=== PATIENT | male | born 1955 | race Caucasian/White ===

== ENCOUNTER 2016-06-24 16:07 | Emergency (ER) | payer SELFPAY ==
--- NOTE | 2016-06-24 17:00 | EDM.PDOC ---
ED HPI GENERAL MEDICAL PROBLEM - General Stated Complaint: HIGH BP Time Seen by Provider: 06/24/16 17:00 Source of Information: Reports: Patient History Limitations: Reports: No limitations - History of Present Illness INITIAL COMMENTS - FREE TEXT/NARRATIVE: History of present illness: [60-year-old male comes in stating that he went for an employment physical and was found to be hypertensive. He returned approximately a week to 10 days later for a second attempt at passing the physical and again he was hypertensive. He indicates he went to the walk-in clinic and immediately sent him here to the ER secondary to the level of hypertension he was experiencing. Patient denies any symptoms other than feeling a little tired, and having pressure in his head but not an actual headache] Review of systems: As per history of present illness and below otherwise all systems reviewed and negative. Past medical history: As per history of present illness and as reviewed below otherwise noncontributory. Surgical history: As per history of present illness and as reviewed below otherwise noncontributory. Social history: No reported history of drug or alcohol abuse. Family history: As per history of present illness and as reviewed below otherwise noncontributory. Physical exam: HEENT: Atraumatic, normocephalic, pupils reactive, negative for conjunctival pallor or scleral icterus, mucous membranes moist, throat clear, neck supple, nontender, trachea midline. Lungs: Clear to auscultation, breath sounds equal bilaterally, chest nontender. Heart: S1S2, regular, negative for clicks, rubs, or JVD. Abdomen: Soft, nondistended, nontender. Negative for masses or hepatosplenomegaly. Negative for costovertebral tenderness. Pelvis: Stable nontender. Genitourinary: Deferred. Rectal: Deferred. Extremities: Atraumatic, negative for cords or calf pain. Neurovascular unremarkable. Neuro: Awake, alert, oriented. Cranial nerves II through XII unremarkable. Cerebellum unremarkable. Motor and sensory unremarkable throughout. Exam nonfocal. My nurse interviews patient he indicates that in fact the pain sometimes radiates up his neck into his head but denies chest pain. Patient was medically anxious so Ativan was given which allowed patient to dose off and on. Subsequently patient's blood pressure dropped into the 170 systolic range. Clonidine 0.2 mg given by mouth to good effect we'll discharge patient would prefer this medication so they have time to establish care with primary care provider. Diagnostics: [Workup] Therapeutics: [Nitro paste, clonidine 0.2, Ativan IV] Impression: [Hypertension] Plan: [Antihypertensive followup with PCP] Definitive disposition and diagnosis as appropriate pending reevaluation and review of above. - Related Data Allergies Allergy/AdvReac Type Severity Reaction Status Date / Time No Known Allergies Allergy Verified 06/24/16 16:28 Home Meds: Home Meds Hydrochlorothiazide 12.5 mg PO QAM #14 cap 06/24/16 [Rx] cloNIDine HCl [Clonidine HCl ER] 0.1 mg PO BID #28 tab.er.12h 06/24/16 [Rx] Past Medical History - Past Health History Medical/Surgical History: Denies Medical/Surgical History - Infectious Disease History Infectious Disease History: Reports: Chicken pox, Measles Social & Family History - Tobacco Use Smoking Status *Q: Never Smoker Second Hand Smoke Exposure: No - Recreational Drug Use Recreational Drug Use: No ED ROS GENERAL - Review of Systems Review Of Systems: See Below (See history of present illness) ED EXAM, GENERAL - Physical Exam Exam: See Below (The history of present illness) Course - Vital Signs Last Recorded V/S: Last Vital Signs Temp 36.2 C 06/24/16 16:33 Pulse 64 06/24/16 19:24 Resp 16 06/24/16 19:24 BP 159/99 H 06/24/16 19:24 Pulse Ox 96 06/24/16 19:24 - Orders/Labs/Meds Orders: Active Orders 24 hr Category Date Time Status EKG Documentation Completion [RC] STAT Care 06/24/16 17:21 Active Chest 2V [CR] Stat Exams 06/24/16 17:21 Taken Sodium Chloride 0.9% [Saline Flush] Med 06/24/16 17:21 Active 10 ml FLUSH ASDIRECTED PRN Sodium Chloride 0.9% [Saline Flush] Med 06/24/16 17:21 Active 2.5 ml FLUSH ASDIRECTED PRN Saline Lock Insert [OM.PC] Stat Oth 06/24/16 17:21 Ordered Medication Orders Sodium Chloride (Saline Flush) 10 ml FLUSH ASDIRECTED PRN PRN Reason: Keep Vein Open Last Admin: 06/24/16 17:48 Dose: 10 ml Sodium Chloride (Saline Flush) 2.5 ml FLUSH ASDIRECTED PRN PRN Reason: Keep Vein Open Last Admin: 06/24/16 17:47 Dose: 2.5 ml Labs: Laboratory Tests 06/24/16 06/24/16 06/24/16 Range/Units 17:30 17:30 17:30 WBC 6.97 (4.0-11.0) K/uL RBC 5.24 (4.50-5.90) M/uL Hgb 15.6 (13.0-17.0) g/dL Hct 47.0 (38.0-50.0) % MCV 89.7 (80.0-98.0) fL MCH 29.8 (27.0-32.0) pg MCHC 33.2 (31.0-37.0) g/dL RDW Std Deviation 44.5 (28.0-62.0) fl RDW Coeff of [place] 14 (11.0-15.0) % Plt Count 246 (150-400) K/uL MPV 9.70 (7.40-12.00) fL Neut % (Auto) 69.9 (48.0-80.0) % Lymph % (Auto) 20.8 (16.0-40.0) % Mccreary % (Auto) 7.9 (0.0-15.0) % Eos % (Auto) 1.0 (0.0-7.0) % Baso % (Auto) 0.4 (0.0-1.5) % Neut # (Auto) 4.9 (1.4-5.7) K/uL Lymph # (Auto) 1.5 (0.6-2.4) K/uL Mccreary # (Auto) 0.6 (0.0-0.8) K/uL Eos # (Auto) 0.1 (0.0-0.7) K/uL Baso # (Auto) 0.0 (0.0-0.1) K/uL Nucleated RBC % 0.0 /100WBC Nucleated RBCs # 0 K/uL Sodium 143 (136-146) mmol/L Potassium 4.3 (3.5-5.1) mmol/L Chloride 105 (98-110) mmol/L Carbon Dioxide 28 (21-31) mmol/L BUN 11 (6.0-23.0) mg/dL Creatinine 1.1 (0.6-1.5) mg/dL Est Cr Clr Drug Dosing 67.60 mL/min Estimated GFR (MDRD) > 60.0 ml/min Glucose 97 (60-110) mg/dL Calcium 9.3 (8.8-10.8) mg/dL Total Bilirubin 0.5 (0.1-1.5) mg/dL AST 18 (5-40) IU/L ALT 22 (8-54) IU/L Alkaline Phosphatase 76 (40-150) Troponin I < 0.10 (0.0-0.29) NG/ML Total Protein 7.5 (6.0-8.0) g/dL Albumin 4.3 (3.5-5.0) g/dL Globulin 3.2 (2.0-3.5) g/dL Albumin/Globulin Ratio 1.3 (1.3-2.8) Amylase 50 (10-90) U/L Lipase 10 (7-80) U/L Meds: Medications Generic Name Dose Route Start Last Admin Trade Name Freq PRN Reason Stop Dose Admin Sodium Chloride 10 ml 06/24/16 17:21 06/24/16 17:48 Saline Flush FLUSH 10 ml ASDIRECTED PRN Administration Keep Vein Open Sodium Chloride 2.5 ml 06/24/16 17:21 06/24/16 17:47 Saline Flush FLUSH 2.5 ml ASDIRECTED PRN Administration Keep Vein Open Discontinued Medications Generic Name Dose Route Start Last Admin Trade Name Freq PRN Reason Stop Dose Admin Aspirin 324 mg 06/24/16 17:21 06/24/16 17:42 Aspirin PO 06/24/16 17:22 324 mg ONETIME ONE Administration Clonidine HCl 0.2 mg 06/24/16 18:28 06/24/16 19:04 Catapres PO 06/24/16 18:29 0.2 mg ONETIME ONE Administration Ketorolac Tromethamine 30 mg 06/24/16 17:21 06/24/16 17:42 Toradol IVPUSH 06/24/16 17:22 30 mg ONETIME ONE Administration Lorazepam 2 mg 06/24/16 18:00 06/24/16 18:16 Ativan IVPUSH 06/24/16 18:01 2 mg ONETIME ONE Administration Nitroglycerin 1 gm 06/24/16 17:21 06/24/16 17:43 Nitro-Bid 2% TOP 06/24/16 17:22 1 gm ONETIME ONE Administration Nitroglycerin 0.4 mg 06/24/16 17:21 06/24/16 18:58 Nitrostat SL 06/24/16 17:22 Not Given ONETIME ONE Departure - Departure Time of Disposition: 19:28 Disposition: Home, Self-Care 01 Condition: good Clinical Impression: Hypertension screening Prescriptions: Hydrochlorothiazide 12.5 mg PO QAM #14 cap cloNIDine HCl [Clonidine HCl ER] 0.1 mg PO BID #28 tab.er.12h Additional Instructions: The following information is given to patients seen in the emergency department who are being discharged to home. This information is to outline your options for follow-up care. We provide all patients seen in our emergency department with a follow-up referral. The need for follow-up, as well as the timing and circumstances, are variable depending upon the specifics of your emergency department visit. If you don't have a primary care physician on staff, we will provide you with a referral. We always advise you to contact your personal physician following an emergency department visit to inform them of the circumstance of the visit and for follow-up with them and/or the need for any referrals to a consulting specialist. The emergency department will also refer you to a specialist when appropriate. This referral assures that you have the opportunity for follow-up care with a specialist. All of these measure are taken in an effort to provide you with optimal care, which includes your follow-up. Under all circumstances we always encourage you to contact your private physician who remains a resource for coordinating your care. When calling for follow-up care, please make the office aware that this follow-up is from your recent emergency room visit. If for any reason you are refused follow-up, please contact the [facility] Emergency Department at and asked to speak to the emergency department charge nurse. You have been provided with some blood pressure medication to help control her blood pressure please followup with PCP for further evaluation and further control management of chronic high blood pressure. Return to ED as needed as discussed - My Orders Last 24 Hours: My Active Orders 06/24/16 17:21 EKG Documentation Completion [RC] STAT Chest 2V [CR] Stat Sodium Chloride 0.9% [Saline Flush] 10 ml FLUSH ASDIRECTED PRN Sodium Chloride 0.9% [Saline Flush] 2.5 ml FLUSH ASDIRECTED PRN Saline Lock Insert [OM.PC] Stat - Assessment/Plan Last 24 Hours: My Active Orders 06/24/16 17:21 EKG Documentation Completion [RC] STAT Chest 2V [CR] Stat Sodium Chloride 0.9% [Saline Flush] 10 ml FLUSH ASDIRECTED PRN Sodium Chloride 0.9% [Saline Flush] 2.5 ml FLUSH ASDIRECTED PRN Saline Lock Insert [OM.PC] Stat
[2016-06-24] MEDS ORDERED: Nitroglycerin 2% Oint 1 GM UD Packet TOP ONE (17:21)
[2016-06-24] MEDS ORDERED: Aspirin 81 MG Tab.Chew PO ONE (17:21)
[2016-06-24] MEDS ORDERED: Nitroglycerin 0.4 MG Tab.SL SL ONE (17:21)
[2016-06-24] MEDS ORDERED: Ketorolac 30 MG/ML SDV IVPUSH ONE (17:21)
[2016-06-24] MEDS ORDERED: Sodium Chloride 0.9% 2.5 ML Syringe FLUSH PRN (17:21)
[2016-06-24] MEDS ORDERED: Sodium Chloride 0.9% 10 ML Syringe FLUSH PRN (17:21)
[2016-06-24] MEDS ORDERED: LORazepam 2 MG/ML MDV IVPUSH ONE (18:00)
[2016-06-24 18:08] LABS: CHLORIDE,CL 105 mmol/L (98-110); SODIUM,NA 143 mmol/L (136-146)
[2016-06-24] MEDS ORDERED: cloNIDine 0.1 MG Tab PO ONE (18:28)
[2016-06-25 04:14] VITALS: BP 169/94
--- NOTE | 2016-06-25 10:57 | CR ---
EXAM DATE: 06/24/16 PATIENT'S AGE: 60 Patient: YOSELIN MARIEE Facility: [place], [place] Site . Site : 1955 Study: XRay Chest [id number]/17/2017 5:55:55 PM Ordering Physician: Doctor Adams Final Report: INDICATIONS: High blood pressure. TECHNIQUE: Chest 2 view. COMPARISON: None FINDINGS: No pneumothorax, pleural effusion or airspace consolidation. Cardiac and mediastinal contours are within normal limits. Upper abdomen and osseous structures show no acute abnormality. IMPRESSION: No acute cardiopulmonary disease. Dictated by Raymond Prasad MD @ 06/24/2016 6:12:05 PM Dictated by: Raymond Prasad MD @ 06/24/2016 18:12:12 (Electronic Signature) Report Signed by Proxy and Original Signed Document filed in the Medical Record. MTDHarpreet
== END 2016-06-24 19:50 | disposition home or self-care (01) ==
LOC: MW.ED 16:07
DX: Z13.6 Encounter for screening for cardiovascular disorders (principal)
CPT/HCPCS: 36415; 71020; 80053; 82150; 83690; 84484; 85025; 93005; 96374; 96375; 99284; A9270; J1885; J2060

== ENCOUNTER 2017-05-30 17:44 | Emergency (ER) | payer BC, OTHER ==
--- NOTE | 2017-05-30 18:18 | EDM.PDOC ---
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 No fever nausea vomiting chills sweats no chest pain shortness breath headache dizziness palpitation no bowel or urine symptoms ] Denies head injury or loss of consciousness Review of systems: As per history of present illness and below otherwise all systems reviewed and negative. Past medical history: As per history of present illness and as reviewed below otherwise noncontributory. Surgical history: As per history of present illness and as reviewed below otherwise noncontributory. Social history: No reported history of drug or alcohol abuse. Family history: As per history of present illness and as reviewed below otherwise noncontributory. Physical exam: HEENT: Atraumatic, normocephalic, pupils reactive, negative for conjunctival pallor or scleral icterus, mucous membranes moist, throat clear, neck supple, nontender, trachea midline. Lungs: Clear to auscultation, breath sounds equal bilaterally, chest nontender. Heart: S1S2, regular, negative for clicks, rubs, or JVD. Abdomen: Soft, nondistended, nontender. Negative for masses or hepatosplenomegaly. Negative for costovertebral tenderness. Pelvis: Stable nontender. Genitourinary: Deferred. Rectal: Deferred. Extremities: Atraumatic, negative for cords or calf pain. Neurovascular unremarkable. Neuro: Awake, alert, oriented. Cranial nerves II through XII unremarkable. Cerebellum unremarkable. Motor and sensory unremarkable throughout. Exam nonfocal. Skin no bruising abrasion or open lesion/unremarkable Diagnostics: [X-ray right ankle complete Right knee complete Pelvis 1 view ] Therapeutics: []Rest ice ibuprofen Impression: [Right lower extremity pain/contusion post fall] Definitive disposition and diagnosis as appropriate pending reevaluation and review of above. right leg Pain Score (Numeric/FACES): 5 - Related Data Allergies Allergy/AdvReac Type Severity Reaction Status Date / Time No Known Allergies Allergy Verified 05/30/17 17:58 Home Meds: Home Meds Losartan [Cozaar] 25 mg PO DAILY 05/30/17 [History] Past Medical History - Past Health History Medical/Surgical History: Denies Medical/Surgical History HEENT History: Reports: None Cardiovascular History: Reports: Hypertension Respiratory History: Reports: None Gastrointestinal History: Reports: None Genitourinary History: Reports: None Musculoskeletal History: Reports: None Neurological History: Reports: None Psychiatric History: Reports: None Endocrine/Metabolic History: Reports: None Hematologic History: Reports: None Immunologic History: Reports: None Oncologic (Cancer) History: Reports: None Dermatologic History: Reports: None - Infectious Disease History Infectious Disease History: Reports: Chicken Pox, Measles, Mumps, Other (See Below) Other Infectious Disease History: childhood - Past Surgical History Head Surgeries/Procedures: Reports: None HEENT Surgical History: Reports: None Cardiovascular Surgical History: Reports: None Respiratory Surgical History: Reports: None GI Surgical History: Reports: Cholecystectomy Male Surgical History: Reports: None Endocrine Surgical History: Reports: None Neurological Surgical History: Reports: None Musculoskeletal Surgical History: Reports: None Oncologic Surgical History: Reports: None Dermatological Surgical History: Reports: None Social & Family History - Family History Family Medical History: Noncontributory - Tobacco Use Smoking Status *Q: Never Smoker Second Hand Smoke Exposure: No - Caffeine Use Caffeine Use: Reports: Coffee - Recreational Drug Use Recreational Drug Use: No Course - Vital Signs Last Recorded V/S: Last Vital Signs Temp 36.8 C 05/30/17 17:59 Pulse 66 05/30/17 17:59 Resp 18 05/30/17 17:59 BP 145/71 H 05/30/17 17:59 Pulse Ox 99 05/30/17 17:59 - Orders/Labs/Meds Orders: Active Orders 24 hr Category Date Time Status Ankle Min 3V Rt [CR] Stat Exams 05/30/17 18:13 Taken Chest 1V Frontal [CR] Stat Exams 05/30/17 18:18 Taken Knee 3V Rt [CR] Stat Exams 05/30/17 18:13 Taken Pelvis 1V or 2V [CR] Stat Exams 05/30/17 18:13 Taken Departure - Departure Disposition: Home, Self-Care 01 Clinical Impression: Multiple contusions - Discharge Information Referrals: PCP,None [Primary Care Provider] - Forms: ED Department Discharge Additional Instructions: The following information is given to patients seen in the emergency department who are being discharged to home. This information is to outline your options for follow-up care. We provide all patients seen in our emergency department with a follow-up referral. The need for follow-up, as well as the timing and circumstances, are variable depending upon the specifics of your emergency department visit. If you don't have a primary care physician on staff, we will provide you with a referral. We always advise you to contact your personal physician following an emergency department visit to inform them of the circumstance of the visit and for follow-up with them and/or the need for any referrals to a consulting specialist. The emergency department will also refer you to a specialist when appropriate. This referral assures that you have the opportunity for followup care with a specialist. All of these measure are taken in an effort to provide you with optimal care, which includes your followup. Under all circumstances we always encourage you to contact your private physician who remains a resource for coordinating your care. When calling for followup care, please make the office aware that this follow-up is from your recent emergency room visit. If for any reason you are refused follow-up, please contact the [facility] emergency department at and asked to speak to the emergency department charge nurse. Motrin/Tylenol as directed follow-up primary medical doctor return as needed as discussed <Pranav Alcazar - Last Filed: 05/30/17 19:09> ED HPI GENERAL MEDICAL PROBLEM - History of Present Illness INITIAL COMMENTS - FREE TEXT/NARRATIVE: Patient's emergency department course has been unremarkable x-rays were reviewed and were negative for fracture-dislocation be discharged with diagnosis of observation status post fall multiple contusion/sprain Review of Systems - Review of Systems Review Of Systems: ROS reveals no pertinent complaints other than HPI. ED EXAM, GENERAL - Physical Exam Exam: See Below (See dictation) Departure - Departure Time of Disposition: 19:08 Condition: Good
[2017-05-30 19:24] VITALS: BP 124/71
--- NOTE | 2017-06-02 11:28 | CR ---
EXAM DATE: 05/30/17 PATIENT'S AGE: 61 Patient: YOSELIN MILLER Facility: [place], [place] Site . Site : 1955 Study: XRay Pelvis [id number]/23/2018 6:46:17 PM Ordering Physician: Rigo Cooper Final Report: Indication: Injury and pain Technique: Pelvis one view Comparison: None Findings: Bones: Alignment is normal. No fractures or bone lesions. Joint spaces: Mild bilateral hip joint osteoarthritis. Soft tissues: Unremarkable. Impression: No sign of acute injury. Dictated by Gunner Pritchard MD @ 05/30/2017 6:57:11 PM Dictated by: Gunner Pritchard MD @ 05/30/2017 18:57:20 (Electronic Signature) Report Signed by Proxy. [facility] CENTERHarpreet
--- NOTE | 2017-06-02 11:29 | CR ---
EXAM DATE: 05/30/17 PATIENT'S AGE: 61 Patient: YOSELIN MILELR Facility: [place], [place] Site . Site : 1955 Study: XRay Chest [id number]/23/2018 6:46:49 PM Ordering Physician: Rigo Cooper Final Report: INDICATION: Fall with pain TECHNIQUE: Chest 2 views COMPARISON: June 24, 2016 FINDINGS: Cardiovascular and mediastinum: Heart size and vasculature are normal in caliber and appearance. Lungs and pleural spaces: Lungs are clear. No sign of infiltrate or mass. No sign of pleural effusion. No pneumothorax. Bones and soft tissues: No significant findings. IMPRESSION: No acute findings and no significant changes from the prior exam. Dictated by Gunner Pritchard MD @ 05/30/2017 6:58:32 PM Dictated by: Gunner Pritchard MD @ 05/30/2017 18:58:37 (Electronic Signature) Report Signed by Proxy. [facility]
--- NOTE | 2017-06-02 11:31 | CR ---
EXAM DATE: 05/30/17 PATIENT'S AGE: 61 Patient: YOSELIN MILLER Facility: [place], [place] Site . Site : 1955 Study: XRay Knee Right [id number]/23/2018 6:47:16 PM Ordering Physician: Rigo Cooper Final Report: INDICATION: Right knee injury. TECHNIQUE: 3 views of the right knee. COMPARISON: None. FINDINGS: Alignment is normal. No joint effusion, fracture or other abnormality. No degenerative changes. IMPRESSION: No sign of acute injury. Dictated by Gunner Pritchard MD @ May 30 2017 6:54PM (Electronic Signature) Report Signed by Proxy. [facility]
--- NOTE | 2017-06-02 11:32 | CR ---
EXAM DATE: 05/30/17 PATIENT'S AGE: 61 Patient: YOSELIN MILLER Facility: [place], [place] Site . Site : 1955 Study: XRay Extremity Right ANKLE [id number]/23/2018 6:47:42 PM Ordering Physician: Rigo Cooper Final Report: INDICATION: Ankle pain TECHNIQUE: Ankle radiograph 3 views COMPARISON: None FINDINGS: Bones: Alignment is normal. No acute fractures or aggressive osseous lesions seen. Joint spaces: The visualized tibiotalar, subtalar, and midfoot joints are unremarkable in appearance. No joint effusion is seen. Soft tissues: Kager`s fat pad is normal in appearance. The Achilles` tendon is normal in appearance. No radiopaque foreign bodies are noted. IMPRESSION: 1. No acute osseous injuries are identified. Dictated by Jose Dean MD @ 05/30/2017 7:01:55 PM Dictated by: Jose Dean MD @ 05/30/2017 19:03:04 (Electronic Signature) Report Signed by Proxy. IRA
== END 2017-05-30 19:19 | disposition home or self-care (01) ==
LOC: MW.ED 17:44
DX: S80.11XA Contusion of right lower leg, initial encounter (principal); I10 Essential (primary) hypertension; Z79.899 Other long term (current) drug therapy; W17.89XA Other fall from one level to another, initial encounter; Y99.0 Civilian activity done for income or pay
CPT/HCPCS: 71045; 71045-26; 72170; 72170-26; 73562-26-RT; 73562-RT; 73610-26-RT; 73610-RT; 99283

== ENCOUNTER 2021-05-18 09:05 | Emergency (ER) | payer SELFPAY ==
[2021-05-18] MEDS ORDERED: Acetaminophen/oxyCODONE 325-5 MG Tab PO ONE (10:10)
[2021-05-18 11:40] VITALS: BP 168/98; PULSE 72
== END 2021-05-18 11:25 | disposition home or self-care (01) ==
LOC: MW.ED 09:05
DX: S20.211A Contusion of right front wall of thorax, initial encounter (principal); I10 Essential (primary) hypertension; Z88.2 Allergy status to sulfonamides; W20.8XXA Other cause of strike by thrown, projected or falling object, initial encounter
CPT/HCPCS: 71250; 99283; A9270